=== PATIENT | female | born 1970 | race Hispanic/Latino ===

== ENCOUNTER → 2017-12-03 | Outpatient (CLI) | payer OTHER ==
[~2017-12-03] MED LIST: FERR325T22 PO
== END ==
LOC: RAH 12:27
PROVIDERS: ATTEND Family Medicine
DX: M47.896 Other spondylosis, lumbar region (principal); M25.511 Pain in right shoulder; M25.551 Pain in right hip
CPT/HCPCS: 72100; 73030; 73502

== ENCOUNTER 2018-01-22 05:30 | Observation (INO) | payer OTHER ==
[2018-01-21 13:00] VITALS: BP 135/81
[2018-01-21 13:00] LABS: BASOPHILS % (AUTO) 0.5 % (0.0-5.0); EOSINOPHILS % (AUTO) 0.6 % (0.0-8.0); LYMPHOCYTES % (AUTO) 27.9 % (21.0-51.0); MEAN CORPUSCULAR HEMOGLOBIN 25.7 pg (27.0-33.0); MEAN CORPUSCULAR HGB CONC 33.5 g/dL (32.0-36.0); MEAN CORPUSCULAR VOLUME 76.7 fL (79-99); MONOCYTES % (AUTO) 5.6 % (3.0-13.0); NEUTROPHILS % (AUTO) 65.4 % (40.0-77.0); PLATELET COUNT (AUTO) 317 K/uL (130-400); RED CELL DISTRIBUTION WIDTH 25.2 % (11.0-15.5); WHITE BLOOD COUNT (AUTO) 7.8 K/uL (4.8-10.8)
[2018-01-22] VITALS (20 sets, daily range): BP systolic 109–153; BP diastolic 55–93
[~2018-01-22] VITALS: Ht 162.6 cm; Wt 88.1 kg
[2018-01-22] MEDS ORDERED: CEFAZOLIN SODIUM 1 GM VIAL ONE (06:31)
[2018-01-22] MEDS ORDERED: MIDAZOLAM HCL 1 MG/ML 2ML VIAL ONE (06:38)
[2018-01-22] MEDS ORDERED: PROPOFOL 10 MG/ML 20ML VIAL IV ONE (06:38)
[2018-01-22] MEDS ORDERED: FENTANYL CITRATE PF 50 MCG/1 ML 2ML VIAL ONE ×3 (06:38→09:07)
[2018-01-22] MEDS ORDERED: LIDOCAINE PF 2% 5ML ABBOJECT ONE (06:39)
[2018-01-22] MEDS ORDERED: ROCURONIUM BROMIDE 10MG/1ML 5ML VL ONE (06:39)
[2018-01-22] MEDS: CEFAZOLIN SODIUM 1 GM VIAL IVP ONE ×2 (06:44→07:00)
[2018-01-22] MEDS ORDERED: EPHEDRINE SULFATE 50 MG/ML AMPULE ONE (07:04)
[2018-01-22] MEDS ORDERED: PHENYLEPHRINE HCL 10 MG/ML 1ML VIAL IV ONE (07:04)
[2018-01-22] MEDS ORDERED: ONDANSETRON HCL 4 MG/2 ML VIAL ONE (07:06)
[2018-01-22] MEDS ORDERED: LACTATED RINGERS 1000ML 1,000 ML IV SCH (08:00)
[2018-01-22] MEDS ORDERED: WATER FOR INJECTION,STERILE 20 ML VIAL IJ ONE (08:00)
[2018-01-22] MEDS ORDERED: NEOSTIGMINE METHYLSULFATE 1MG/ML IV ONE (09:08)
[2018-01-22] MEDS ORDERED: GLYCOPYRROLATE 0.2 MG/ML 5 ML VIAL ONE (09:08)
[2018-01-22] MEDS ORDERED: CALDOLOR 800MG+NS 250ML 250 ML IV ONE (09:26)
[2018-01-22] MEDS ORDERED: MEPERIDINE-PF 50 MG/ML SYG ONE (09:26)
[2018-01-22] MEDS ORDERED: MORPHINE SULFATE 4 MG/1ML SYG ONE (09:46)
[2018-01-22] MEDS ORDERED: DOCUSATE SODIUM 100 MG CAP PO PRN (11:15)
[2018-01-22] MEDS ORDERED: BISACODYL 10 MG SUPP.RECT RC PRN (11:15)
[2018-01-22] MEDS ORDERED: SIMETHICONE 80 MG TAB.CHEW PO PRN (11:15)
[2018-01-22] MEDS ORDERED: IBUPROFEN 600 MG TABLET PO PRN (11:15)
[2018-01-22] MEDS ORDERED: PROMETHAZINE HCL 25 MG/ML 1ML AMPULE IM PRN (11:15)
[2018-01-22] MEDS ORDERED: DEXTROSE 5 %-0.45 % NACL 1,000 ML IV SCH (11:30)
[2018-01-22] MEDS: PROMETHAZINE HCL 25 MG/ML 1ML AMPULE IM PRN ×2 (12:02→21:45)
[2018-01-22] MEDS: MEPERIDINE-PF 75 MG/ML SYG IM PRN ×2 (12:03→21:46)
[2018-01-22] MEDS: ACETAMINOPHEN-CODEINE 300/30MG TAB PO PRN (18:28)
[2018-01-22] MEDS: DEXTROSE 5 %-0.45 % NACL 1,000 ML IV SCH (20:55)
[2018-01-23] MEDS: DEXTROSE 5 %-0.45 % NACL 1,000 ML IV SCH (02:34)
[2018-01-23] MEDS: ACETAMINOPHEN-CODEINE 300/30MG TAB PO PRN ×3 (05:25→13:52)
[2018-01-23 05:30] LABS: HEMATOCRIT 29.6 % (36-48); MEAN CORPUSCULAR HEMOGLOBIN 25.3 pg (27.0-33.0); MEAN CORPUSCULAR VOLUME 76.8 fL (79-99); PLATELET COUNT (AUTO) 305 K/uL (130-400); RED BLOOD CELL COUNT(AUTO) 3.85 MIL/uL (4.00-5.50); RED CELL DISTRIBUTION WIDTH 24.9 % (11.0-15.5); WHITE BLOOD COUNT (AUTO) 13.8 K/uL (4.8-10.8)
[2018-01-23 06:12] VITALS: BP 116/59
[2018-01-23 08:28] VITALS: BP 121/78
== END 2018-01-23 15:20 | disposition home or self-care (01) ==
LOC: DAH 05:30 → WSH 05:31
PROVIDERS: ADMIT Obstetrics & Gynecology; ATTEND Obstetrics & Gynecology
DX: D50.0 Iron deficiency anemia secondary to blood loss (chronic) (principal); N92.0 Excessive and frequent menstruation with regular cycle; N94.6 Dysmenorrhea, unspecified; K66.8 Other specified disorders of peritoneum; N73.6 Female pelvic peritoneal adhesions (postinfective); Z90.710 Acquired absence of both cervix and uterus; Z98.51 Tubal ligation status; Z80.42 Family history of malignant neoplasm of prostate; Z83.3 Family history of diabetes mellitus
CPT/HCPCS: 36415 ×2; 58552; 84703; 85025; 85027; 86850; 86900; 86901; 88305; 88309; 96372; A4215; A4218; A4351; A4510; A4600; A4649 ×3; C1769 ×2; G0378 ×34; J0690; J1741; J2001; J2175 ×3; J2250; J2270; J2370; J2405; J2550 ×2; J2704; J2710; J3010 ×3; J3490 ×3; J7030; J7120 ×2

== ENCOUNTER 2018-07-25 03:24 | Emergency (ER) | payer OTHER ==
[2018-07-25] MEDS ORDERED: LIDOCAINE HCL-MPF 1% 2ML VIAL ONE (03:52)
[2018-07-25] MEDS ORDERED: DEXAMETHASONE SOD PHOSPHATE 10MG/ML 1ML VIAL ONE (03:52)
[2018-07-25] MEDS ORDERED: CEFTRIAXONE SODIUM 1 GM ONE (03:52)
== END 2018-07-25 04:38 | disposition home or self-care (01) ==
LOC: EDH 03:24
DX: J02.9 Acute pharyngitis, unspecified (principal)
CPT/HCPCS: 87804 ×2; 96372 ×2; 99284; J0696; J1100; J3490